=== PATIENT | male | born 1970 | race Caucasian/White ===

== ENCOUNTER → 2016-12-18 | Outpatient (CLI) | payer BC ==
--- NOTE | 2016-12-18 15:15 | Diagnostic Imaging Report ---
Indications: Sinus pain, recurrent sinusitis Technique: Spiral images obtained through the maxillofacial sinuses. No IV contrast utilized per protocol. Multiplanar reconstructions were generated.Total dose length product 562 mGycm. CTDIvol(s) 28mGy Comparison: None Findings: Unusual prominence to the left maxillary ostium, possibly surgically augmented. There is absence of a portion of the anterior nasal septum, likewise likely postsurgical. There is minimal mucosal thickening at the floor of both maxillary sinuses. The sinuses are otherwise clear. There is mild rightward nasal septal deviation anteriorly. The orbits, included intracranial structures, atrophic soft tissues are unremarkable. The dentition is intact. No acute fractures. Impression: Suspect prior sinonasal surgery, as described. Correlate with surgical history Minimal bilateral maxillary sinus mucosal disease The CT scanner at [facility] is accredited by the [employer] and the scans are performed using protocols designed to limit radiation exposure to as low as reasonably achievable to attain images of sufficient resolution adequate for diagnostic evaluation.
== END | disposition home or self-care (01) ==
LOC: CAT 14:16
DX: J32.9 Chronic sinusitis, unspecified (principal)
CPT/HCPCS: 70486